=== PATIENT | male | born 1970 | race Caucasian/White ===

== ENCOUNTER 2023-02-10 08:24 | Emergency (ER) | payer MEDICAID ==
[~2023-02-10] VITALS: Ht 182.9 cm; Wt 81.0 kg
[2023-02-10 08:26] VITALS: TEMP 98.1
[2023-02-10] MEDS ORDERED: IBUP-1506 PO (08:27)
[2023-02-10 08:34] VITALS: BP 132/88; PULSE 92; RESP 16
[2023-02-10] MEDS ORDERED: PENI500T2 PO (09:00)
[2023-02-10] MEDS ORDERED: TRAM-559 PO (09:00)
== END 2023-02-10 09:06 | disposition home or self-care (01) ==
LOC: EMS 08:25
DX: K04.7 Periapical abscess without sinus (principal); K02.9 Dental caries, unspecified
CPT/HCPCS: 99283; Z7502